=== PATIENT | female | born 1955 | race Caucasian/White ===

== ENCOUNTER 2017-07-09 11:45 | Emergency (ER) | payer MEDICARE, OTHER ==
[2017-07-09 12:51] VITALS: BP 137/79
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
[2017-07-09] MEDS ORDERED: Acetaminophen TAB* 325 MG PO ONE (15:24)
== END 2017-07-09 15:30 | disposition home or self-care (01) ==
LOC: UCCORT 11:45
DX: S16.1XXA Strain of muscle, fascia and tendon at neck level, initial encounter (principal); S46.812A Strain of other muscles, fascia and tendons at shoulder and upper arm level, left arm, initial encounter; G44.209 Tension-type headache, unspecified, not intractable; Z87.891 Personal history of nicotine dependence; Z79.82 Long term (current) use of aspirin; E11.9 Type 2 diabetes mellitus without complications; E78.5 Hyperlipidemia, unspecified; V89.2XXA Person injured in unspecified motor-vehicle accident, traffic, initial encounter; Y92.85 Railroad track as the place of occurrence of the external cause
CPT/HCPCS: 99212; A9270-GY; G0463

== ENCOUNTER 2017-09-02 16:14 | Emergency (ER) | payer MEDICARE ==
[2017-09-02 16:31] VITALS: BP 137/76
--- NOTE | 2017-09-02 17:21 | UC ---
Eye Complaint HPI - HPI Summary HPI Summary: clear drainage and itching eyes, some nasal congestion, no fevers - History of Current Complaint Chief Complaint: UCEye Stated Complaint: EYE COMPL Time Seen by Provider: 09/02/17 17:15 Hx Obtained From: Patient ?: No Onset/Duration: Sudden Onset, Lasting Days - 1, Still Present Timing: Constant Severity Initially: Mild Severity Currently: Mild Alleviating Factor(s): Nothing Associated Signs And Symptoms: Positive: Drainage (Clear) - ( - Allergies/Home Medications Allergies/Adverse Reactions: Allergies Allergy/AdvReac Type Severity Reaction Status Date / Time Penicillins Allergy See Comment Verified 09/02/17 16:31 wheat Allergy GI Upset Verified 09/02/17 16:31 Home Medications: Home Medications Tiotropium CAP.INH* [Spiriva CAP.INH*] 1.25 cap.inh INH DAILY 09/02/17 [History Confirmed 09/02/17] PMH/Surg Hx/FS Hx/Imm Hx Previously Healthy: No Endocrine History: Dyslipidemia Cardiovascular History: Hypertension Respiratory History: COPD, Asthma Psychological History: Depression - Surgical History Surgical History: None - Family History Known Family History: Positive: Hypertension, Diabetes - Social History Occupation: Disabled Lives: With Family Alcohol Use: Rare Substance Use Type: None Smoking Status (MU): Former Smoker Have You Smoked in the Last Year: No When Did the Patient Quit Smoking/Using Tobacco: 12 years ago Household Exposure Type: Cigarettes Review of Systems Constitutional: Negative Skin: Negative Eyes: Drainage - clear--bilateral ENT: Nasal Discharge Respiratory: Negative Cardiovascular: Negative Gastrointestinal: Negative Genitourinary: Negative Motor: Negative Neurovascular: Negative Musculoskeletal: Negative Neurological: Negative Psychological: Negative Is Patient Immunocompromised?: No All Other Systems Reviewed And Are Negative: Yes Physical Exam Triage Information Reviewed: Yes Appearance: Well-Appearing, No Pain Distress, Obese Vital Signs: Initial Vital Signs Temp 97.7 F 09/02/17 16:26 Pulse 92 09/02/17 16:26 Resp 18 09/02/17 16:26 BP 137/76 09/02/17 16:26 Pulse Ox 96 09/02/17 16:26 Vital Signs Reviewed: Yes Eye Exam: Normal Eyes: Positive: Conjunctiva Clear, Discharge - clear ENT Exam: Normal ENT: Positive: Normal ENT inspection, Hearing grossly normal, Pharynx normal, Nasal congestion, TMs normal, Uvula midline. Negative: Trismus, Muffled voice, Hoarse voice, Dental tenderness, Sinus tenderness Dental Exam: Normal Neck exam: Normal Neck: Positive: Supple, Nontender Respiratory Exam: Normal Respiratory: Positive: Chest non-tender, No respiratory distress, No accessory muscle use Cardiovascular Exam: Normal Cardiovascular: Positive: RRR, Pulses Normal, Brisk Capillary Refill Musculoskeletal Exam: Normal Musculoskeletal: Positive: Strength Intact, ROM Intact, No Edema Neurological Exam: Normal Neurological: Positive: Alert, Muscle Tone Normal Psychological Exam: Normal Skin Exam: Normal Eye Complaint Course/Dx - Course Course Of Treatment: zaditor eye drops, flonase, follow with pcp prn - Differential Dx/Diagnosis Provider Diagnoses: Allergic conjunctivitis Discharge - Sign-Out/Discharge Documenting (check all that apply): Discharge - Discharge Plan Condition: Stable Disposition: HOME Prescriptions: Ketotifen Fumarate [Zaditor] 1 drop .SEE ORDER BID #1 bottle Patient Education Materials: Ketotifen (Into the eye), How to Use Eye Drops (ED ), Conjunctivitis (ED) Referrals: Denny Peter MD [Primary Care Provider] - If Needed - Billing Disposition and Condition Condition: STABLE Disposition: HOME
== END 2017-09-02 17:32 | disposition home or self-care (01) ==
LOC: UCCORT 16:14
DX: H10.10 Acute atopic conjunctivitis, unspecified eye (principal); Z88.0 Allergy status to penicillin; Z91.018 Allergy to other foods; Z87.891 Personal history of nicotine dependence
CPT/HCPCS: 99212; G0463